=== PATIENT | female | born 1995 | race African-American/Black ===

== ENCOUNTER 2020-08-11 11:54 | Emergency (ER) | payer MEDICAID ==
[~2020-08-11] VITALS: Ht 175.3 cm; Wt 97.0 kg
[2020-08-11] MEDS ORDERED: METHOCARBAMOL 500MG TABLET PO ONE (12:30)
[2020-08-11] MEDS ORDERED: KETOROLAC 60MG/2ML VIAL IM ONE (12:30)
[2020-08-11 13:07] VITALS: BP 122/64
[2020-08-11] MEDS ORDERED: IBUP-2028 MT (13:18)
[2020-08-11] MEDS ORDERED: METH-773 MT (13:18)
== END 2020-08-11 13:51 | disposition home or self-care (01) ==
LOC: ER 12:24
DX: S16.1XXA Strain of muscle, fascia and tendon at neck level, initial encounter (principal); M54.89 Other dorsalgia; V49.49XA Driver injured in collision with other motor vehicles in traffic accident, initial encounter; Y93.89 Activity, other specified; Y92.488 Other paved roadways as the place of occurrence of the external cause; F12.90 Cannabis use, unspecified, uncomplicated
CPT/HCPCS: 96372; 99283; J1885

== ENCOUNTER 2021-11-05 02:57 | Emergency (ER) | payer MEDICAID ==
[~2021-11-05] VITALS: Ht 175.3 cm; Wt 111.0 kg
[~2021-11-05 02:57] MED LIST: IBUP-2028 MT; METH-773 MT
[2021-11-05] MEDS ORDERED: IBUPROFEN 600MG TABLET PO ONE (05:30)
[2021-11-05] MEDS ORDERED: IBUPROFEN 100MG/5ML UDC PO ONE (06:15)
[2021-11-05] MEDS ORDERED: IBUPROFEN 100MG/5ML UDC PO NR (06:15)
[2021-11-05] MEDS ORDERED: IBUP-2458 MT (06:47)
[2021-11-05 06:55] VITALS: BP 126/74
== END 2021-11-05 07:00 | disposition home or self-care (01) ==
LOC: ER 02:57
DX: J02.9 Acute pharyngitis, unspecified (principal); F12.10 Cannabis abuse, uncomplicated; Z20.822 Contact with and (suspected) exposure to COVID-19
CPT/HCPCS: 87070; 87426; 87430; 99283

== ENCOUNTER 2022-05-19 15:57 | Emergency (ER) | payer MEDICAID ==
[~2022-05-19] VITALS: Ht 165.1 cm; Wt 105.0 kg
[~2022-05-19 15:57] MED LIST changes: +IBUP-2458 MT
[2022-05-19 16:02] VITALS: BP 113/63
== END 2022-05-19 18:05 | disposition left against medical advice (07) ==
LOC: ER 15:57
DX: Z53.21 Procedure and treatment not carried out due to patient leaving prior to being seen by health care provider (principal)
CPT/HCPCS: 99281; Z7610

== ENCOUNTER 2022-08-06 05:15 | Emergency (ER) | payer MEDICAID ==
[~2022-08-06] VITALS: Ht 175.3 cm; Wt 97.0 kg
[2022-08-06 05:36] VITALS: BP 133/79
== END 2022-08-06 06:14 | disposition left against medical advice (07) ==
LOC: ER 05:15
DX: R51.9 Headache, unspecified (principal); Z53.21 Procedure and treatment not carried out due to patient leaving prior to being seen by health care provider
CPT/HCPCS: 99281